=== PATIENT | male | born 2000 | race African-American/Black ===

== ENCOUNTER 2022-08-15 11:03 | Emergency (ER) | payer BC, SELFPAY ==
[2022-08-15 11:45] VITALS: BP 139/75; PULSE 72; RESP 18; TEMP 36.6; O2SAT 100
--- NOTE | 2022-08-15 12:14 | ED.NAVMDI ---
HPI - Nausea/Vomiting/Diarrhea General Chief complaint: Nausea/Vomiting/Diarrhea Stated complaint: diarrhea Time Seen by Provider: 08/15/22 11:33 Source: patient Mode of arrival: ambulatory Limitations: no limitations History of Present Illness HPI Narrative: 21-year-old male presents to [facility] complains of diarrhea for the past 4 days. Patient reports that he has had 2 episodes of diarrhea so far today. Patient denies blood or mucus in his stools. Patient denies recent travel. Patient denies sick contacts. Patient denies possible food poisoning. Patient reports that he did try taking [id number] Pepto-Bismol with minimal relief. Patient reports that he did have abdominal cramping when symptoms 1st started but reports that that has since resolved. MD elicited complaint: diarrhea Onset (ago): day(s) (4) Associated nausea: No Associated abdominal pain: No Location of pain: none Relieving factors: none Associated symptoms: denies other symptoms Related Data Allergies Allergy/AdvReac Type Severity Reaction Status Date / Time No Known Allergies Allergy Verified 08/15/22 12:04 Review of Systems Constitutional: Constitutional: Denies chills, Denies fatigue, Denies fever(s) and Denies weakness ENT: Denies vertigo and Denies dizziness Cardiovascular: Cardiovascular: Denies chest pain Respiratory: Respiratory: Denies cough Gastrointestinal: Gastrointestinal: Denies abdominal pain, Denies constipation, Denies heartburn, Reports diarrhea, Denies nausea and Denies vomiting Musculoskeletal: Musculoskeletal: Denies arthralgias and Denies joint swelling Integumentary/Breasts: Skin/Breast: Denies rash Neurologic: Denies confusion, Denies vertigo, Denies dizziness, Denies syncope and Denies focal weakness PMFSH Comments At time of signature, I agree with nursing past medical, surgical, social and family history. There is no relevant family history pertinent to the presenting complaint. Exam Const: General: healthy appearing and no acute distress Nutritional Appearance: well nourished Orientation/consciousness: patient oriented x3 Limitations: no limitations and No altered mental status Eyes: Conjunctivae: conjunctivae normal Neck: Neck: normal visual inspection Resp: Effort & Inspection: normal respiratory effort and not labored Auscultation: clear to auscultation bilaterally, no crackles, no rales, no rhonchi and no wheezes Cardio: Rate: regular rate Rhythm: regular rhythm Heart sounds: no murmurs GI: Inspection: non-distended GI Palp: Yes Soft to palpation, No Tenderness to palpation present (GI), No Guarding due to palpation present (GI), No Rigid due to palpation, No Hernia present, No Palpable mass present and No Rebound tenderness present Auscultation: normal bowel sounds : General: Yes bladder normal to palpation Back/Spine/Pelvis: Back: no CVA tenderness Skin: General skin exam: normal color Rashes: no rashes Wounds: no wounds Neuro: General: patient oriented x3 Speech: normal speech Psych: Affect: normal affect Attitude: cooperative Course Course Level of Care: Express Care Visit Vital Signs Vital signs: Vital Signs Temperature 36.6 C 08/15/22 11:45 Pulse Rate 72 08/15/22 11:45 Respiratory Rate 18 08/15/22 11:45 Blood Pressure 139/75 08/15/22 11:45 Pulse Oximetry 100 08/15/22 11:45 Oxygen Delivery Room Air 08/15/22 11:45 Temperature 36.6 C 08/15/22 11:45 Pulse Rate 72 08/15/22 11:45 Respiratory Rate 18 08/15/22 11:45 Blood Pressure 139/75 08/15/22 11:45 Pulse Oximetry 100 08/15/22 11:45 Oxygen Delivery Room Air 08/15/22 11:45 MDM - Nausea/Vomiting/Diarrhea MDM Narrative Medical decision making narrative: Work excuse provided for patient as patient is requesting a work excuse as he missed the last few days of work. Will have patient try Imodium for the next 48 hours. Instructed patient to monitor symptoms very closely and
== END 2022-08-15 12:31 | disposition home or self-care (01) ==
PROVIDERS: Emergency Provider Nurse Practitioner Family
DX: R19.7 Diarrhea, unspecified (principal)
CPT/HCPCS: 99203; G0463